=== PATIENT | male | born 1995 | race Caucasian/White ===

== ENCOUNTER → 2017-01-02 | Outpatient (REF) ==
[~2017-01-02] MED LIST: GEODON80 MG PO; IBUPROFEN 200200 MG PO; METADATE; SEROQUEL100 MG PO; SINGULAIR 5M5 MG/TAB PO; TYLENOL 500MG500 MG PO; VENTOLIN0.09 MG IH; ZITHROMAX 250M250 MG PO
[2017-01-02 19:59] LABS: CHLAMYDIA/TRACH by PCR Male NOT DETECTED; Neisseria Gon by PCR Male NOT DETECTED
== END ==
LOC: ZLAB.WCH 18:21
PROVIDERS: Nurse Practitioner Family
DX: Z01.89 Encounter for other specified special examinations (principal)

== ENCOUNTER 2024-02-26 16:40 | Emergency (ER) | payer SELFPAY ==
[~2024-02-26] VITALS: Ht 167.6 cm; Wt 51.4 kg
[~2024-02-26 16:40] MED LIST changes: +CEPHALEXIN500 M1 PO
[2024-02-26 17:00] VITALS: TEMP 98.5
[2024-02-26] MEDS ORDERED: predniSONE 20 MG TAB PO ONE (20:15)
[2024-02-26] MEDS ORDERED: Clindamycin 150 MG CAP PO ONE (20:15)
[2024-02-26] MEDS ORDERED: PREDNISONE20 MG PO (20:19)
[2024-02-26] MEDS ORDERED: CLEOCIN HCL300 MG PO (20:19)
[2024-02-26 20:28] VITALS: BP 132/86; PULSE 92
[2024-02-26] MEDS ORDERED: Ibuprofen 600 MG TAB PO ONE (20:30)
== END 2024-02-26 20:31 | disposition home or self-care (01) ==
LOC: COL.ER 16:40
DX: J03.90 Acute tonsillitis, unspecified (principal); Z87.891 Personal history of nicotine dependence
CPT/HCPCS: J7512